=== PATIENT | female | born 2000 | race Caucasian/White ===

== ENCOUNTER 2023-03-21 12:28 | Outpatient (CLI) | payer OTHER, SELFPAY ==
[2023-03-21 09:07] LABS: HCT 41.6 % (36.0-46.0); MCHC 33.7 % (32.0-36.0); MCV 83 fL (80-95); MPV 9.2 fL (8.0-11.0); Platelet Count 242 10^3/uL (130-400); RDW 12.5 % (11.7-14.6); WBC 8.78 10^3/uL (4.4-10.8)
== END 2023-03-21 12:29 | disposition home or self-care (01) ==
LOC: LBO 12:30
PROVIDERS: PCP Nurse Practitioner Family; Visit Provider Obstetrics & Gynecology Gynecology
DX: O02.1 Missed abortion (principal); Z3A.01 Less than 8 weeks gestation of pregnancy; Z01.818 Encounter for other preprocedural examination; Z01.812 Encounter for preprocedural laboratory examination
CPT/HCPCS: 36415; 85027; 86850; 86900; 86901

== ENCOUNTER 2023-03-22 09:31 | Day surgery (SDC) | payer OTHER, SELFPAY ==
[2023-03-22] VITALS (8 sets, daily range): BP systolic 89–116; BP diastolic 42–75; PULSE 68–83; RESP 17–20; TEMP 36.1–36.6; O2SAT 96–100; BMI 31.7
[2023-03-22] MEDS: Lactated Ringers 1,000 ML 125 ML IV (10:20)
--- NOTE | 2023-03-22 10:28 | W.ANESPRE ---
General Info Date of Service Date Performed: 03/22/23 Height: 5 ft 5 in Weight: 86.6 kg Body Mass Index (BMI): 31.7 Surgical Procedure: Operation Date: 03/22/23 11:40 Proposed Procedure Side Surgeon p Suction Completion, D&C Nubia Billingsley MD Meds Allergies and Home Medications Allergies Allergy/AdvReac Type Severity Reaction Status Date / Time No Known Allergies Allergy Verified 03/22/23 09:52 Home Medication Medication Instructions Recorded PNV 153-FA 400 mcg-om3 35 mg-dha 1 tab PO DAILY 02/21/23 25 mg-epa 5 mg-fish oil chew tablet ( Gummies) Current Visit Medications: Current Medications Generic Name Dose Route Start Last Admin Trade Name Freq PRN Reason Stop Dose Admin Ringer's Solution 1,000 mls @ 125 mls/hr 03/22/23 06:00 03/22/23 10:20 IV 04/20/23 23:59 125 mls/hr INFUSION AUGUSTIN Administration Doxycycline Hyclate 100 mg/ 100 mls @ 100 mls/hr 03/22/23 06:00 Sodium Chloride IVPB 03/22/23 23:59 PREOP AUGUSTIN IV Miscellaneous Supplies 1 each 03/22/23 06:00 Iv Access IV 04/20/23 23:59 DIRECTED AUGUSTIN Sodium Chloride 0 ml 03/22/23 06:00 Normal Saline Flush 10 Ml Syr IV 04/20/23 23:59 PRN PRN Sodium Chloride 0 ml 03/22/23 06:00 Normal Saline 10 Ml Vial IJ 04/20/23 23:59 DIRECTED PRN Sterile Water 0 ml 03/22/23 06:00 Water,Injection,Sterile 10 Ml Vial IJ 04/20/23 23:59 DIRECTED PRN PFSH Active Problems Active Problems: Problem Status Onset Code Preoperative exam for gynecologic surgery Z01.818 Miscarriage O03.9 Z34.90 Smoker F17.200 Medical History Medical History (Updated 03/21/23 @ 19:35 by Nubia Billingsley MD) No pertinent past medical history Surgical History Surgical History No pertinent past surgical history Tobacco Smoking/Tobacco Use Status: Current every day Tobacco Type: e-cigarettes Counseling given: provider counseling Alcohol Alcohol Intake: current Alcohol intake frequency: holidays/special occasions only Substance Use Substance use: Never Substance use type: does not use Prental History History 1 Para Hx # Term Pregnancies Multiple births Hx # Pregnancies Ectopic pregnancies AB induced Hx Number of Living Children AB spontaneous 1 Past Pregnancies Del. Date GA/Weeks # Preg Succ Route Wgt Sex Labor Lgth Anesthesia Location [facility] 03/20/23 No No Nubia O' Mitchell Delivery Date: 03/20/23 Last Updated by: Gwen Calvillo LPN miscarriage Vital Signs and Lab Results Vital Signs Most Recent Vital Signs in EMR: Most Recent Vital Signs Temp Pulse Resp BP Pulse Ox 36.6 C 72 18 116/69 100 03/22/23 09:40 03/22/23 09:40 03/22/23 09:40 03/22/23 09:40 03/22/23 09:40 Lab Results Blood Type / Crossmatch: Patient ABO/Rh O Positive 03/21/23 Antibody Screen NEGATIVE 03/21/23 Complete Blood Count: White Blood Count 8.78 10^3/uL (4.4-10.8) 03/21/23 08:50 Red Blood Count 5.00 10^6/uL (3.93-5.22) 03/21/23 08:50 Hemoglobin 14.0 g/dL (11.2-15.7) 03/21/23 08:50 Hematocrit 41.6 % (36.0-46.0) 03/21/23 08:50 Platelet Count 242 10^3/uL (130-400) 03/21/23 08:50 Complete Metabolic Panel: No Data to Display Liver Function Panel: No Data to Display Coagulation Panel: No Data to Display Cardiac Panel: No Data to Display Arterial Blood Gas: No Data to Display Venous Blood Gas: No Data to Display Pancreas Panel: No Data to Display Thyroid Panel: No Data to Display Infectious Disease: No Data to Display Blood Cultures: No Data to Display Toxicology Panel: No Data to Display Panel: Urine HCG, Qualitative Positive 02/21/23 14:07 Anesthesia Assessment and Plan Anesthesia History Personal History: No History of General Anesthesia Family History: No Family History of Anesthesia Complications Exercise Tolerance Exercise Tolerance: Metabolic Equivalents>4 Pertinent Negatives Pertinent Negatives: No Symptoms of GERD, No Major Cardiovascular Symptoms or Complaints, No Major Pulmonary Symptoms or Complaints and No History of CVA/TIA Cardiac & Pulmonary Exam Cardiac Exam: Normal S1/S2 Heart Sounds Pulmonary Exam: Clear Bilateral Breath Sounds Implantable Cardiac Device Does patient have a Pacemaker or an ICD?: No Airway Exam Known Difficult Airway: No Mallampati Class: 1 Mouth Opening: Normal (> 3cm) Thyromental Distance: Greater than 3 cm Neck Range of Motion: Full ROM Neck Circumference: Normal Teeth Condition: Normal Dentition Airway Comments: Nose piercing. No piercings in mouth ASA Classification ASA Score: ASA 2 Emergency Case?: No NPO Status NPO Status: NPO Clears >2 hours, Solids >8 hours Status Status: Positive HCG Anesthesia Plan Resuscitation Status: Full Code Anesthesia Technique: General Anesthesia Airway Planned: Natural Airway (and or OETT) Monitors Used: Standard Monitors
[2023-03-22] MEDS: DOXYCYCLINE 100 MG in Normal Saline 100 ML IVPB (10:31)
[2023-03-22] MEDS: Bupivacaine 0.25% Pres-Free 30 ML VIAL (12:04)
--- NOTE | 2023-03-22 12:14 | POCSPONT_PTH ---
PATIENT: Keegan Hope LOC: [facility] U#:[id number] AGE/SX: 23/F ROOM: RE03/22/[address]: Nubia Billingsley : 2000 BED: DIS: 03/22/2023 SPEC #: [id number] RECD: 03/22/23 14:50 STATUS: MEILIA REFermin #: [id number] MIMI: 03/22/23 12:[address]: Nubia Billingsley DEPT: Surgical Specimen RECD BY: Sandi Canseco ENTERED: 03/22/23 14:51 SP TYPE: POCSPONT OT DR: Liss Ruffin Tissues: 1 - ,SPONTANEOUS Procedures: GROSS AND MICRO LEVEL 4 Comments: [id number]
--- NOTE | 2023-03-22 12:31 | W.PM.DSUDISC ---
Date of service: 03/22/23 Time of Service: 12:42 Discharge Plan Disposition Patient Disposition: Home Condition: Good Discharge Details Reason For Visit: D&C for embryonic demise Attending Provider: Nubia Billingsley Primary Care Provider: Liss Ruffin Home Meds and New Rx's Prescriptions: No Action Gummies 400 mcg-35 mg- 25 mg-5 mg tablet,chewable 1 tab PO DAILY Discharge Instructions Additional Instructions: You can expect bleeding like a period for a week. Use pads for the 1st 48hrs then you may use tampons. No intercourse until you return for your postop exam approximately 2 weeks after the surgery Stand Alone Forms: DSU Post D&C Miscarriage Activity:: Activity as Tolerated Shower/Bathe:: 24 hours Diet:: As Tolerated Discharge Orders Discharge Orders: Discharge Order (Routine); Ordered 03/22/23 Ordered By: Nubia Billingsley
--- NOTE | 2023-03-22 12:49 | W.ANESPOSTOP ---
Postoperative Evaluation Date, Time and Location Date Performed: 03/22/23 Time Performed: 12:50 Patient Location: PACU Vital Signs Most Recent Imported Vital Signs: Most Recent Vital Signs Temp Pulse Resp BP Pulse Ox 36.2 C L 83 20 114/69 99 03/22/23 12:47 03/22/23 12:47 03/22/23 12:47 03/22/23 12:47 03/22/23 12:47 Pain Score Most Recent Pain Score: Most Recent Pain Score Pain Level 0 03/22/23 12:47 Assessment Mental Status: Awake (Alert & Oriented to Patient Baseline) Airway and Respiratory Function: Patent airway with normal (patient baseline) respiratory exam Cardiovascular Function: Hemodynamically Stable Hydration Status: Adequately Hydrated Nausea & Vomiting: No Nausea or Vomiting Pain: Pt. Denies Any Pain Peripheral Nerve Block: Patient did not receive a nerve block
--- NOTE | 2023-03-22 20:28 | ROE_ITS ---
Date of service: 03/22/23 Time of Service: 20:28 Operative Note Operative Note DATE OF PROCEDURE: 03/22/23 PRE-OP DIAGNOSIS: Embryonic demise at 6 weeks EGA PROCEDURE: Cervical dilation and suction evacuation of uterine contents SURGEON: Nubia Billingsley ANESTHESIA TYPE: General:No Airway Refer to Anesthesia Record ESTIMATED BLOOD LOSS: 20 PATHOLOGY: other (Products of conception to pathology) COMPLICATIONS: None Patient was transported to: PACU Patient's condition: stable Indications: 23 yo female who?who was diagnosed with embryonic demise on 03/20/20. [facility] with a EGA of 10 weeks by LMP.? The transvaginal ultrasound showed a pole without heart rate measuring 6W EGA.? Patient was advised to return for a repeat dating/viability. Ultrasound showed a enlarged yolk sac and a pole without a heartbeat that continued to have a crown-rump length of 6 weeks EGA. Patient consented to a D&C. Findings: Uterus was small retroverted. Uterine sounded to 10 cm. Procedure Description: Patient was taken to the operating room where she was placed in the dorsal supine position and general anesthesia was administered without difficulty. IV Doxycycline was administered upon arrival in the OR. She was then placed in the dorsal lithotomy position in yellowfin stirrups in a neurologically neutral position. She was then prepped, and draped in the usual sterile fashion. Surgi khadra timeout was performed. Darien speculum was placed into the vagina and the anterior lip of the cervix was infiltrated with 2 cc of 0.25% Marcaine without epinephrine. A single-tooth tenaculum was then used to grasp and hold the anterior lip of the cervix. A paracervical block was performed with 4 cc of quarter percent Marcaine injected into the 4 and 8:00 paracervical spaces respectively. The uterus was sounded to 10 cm. The cervix was then sequentially dilated to a maximum of 8 Babs and a 87 mm curved suction cannula was attached to suction and the level of suction tested. The cannula was inserted into the uterine cavity attached to suction and sequentially all 4 quadrants of the uterine cavity were suction curetted until minimal tissue returned. The suction cannula was then removed a banjo curette was used to perform a gentle curetting of all 4 quadrants of the uterine cavity. Minimal tissue was returned. A transvaginal ultrasound was performed to examine the uterus for any remaining products of conception. There were none noted. A final insertion of the suction cannula and suction curetting of all 4 quadrants was performed with minimal tissue returned. All instruments were removed from the vagina after the tenaculum site was noted to be hemostatic. Patient was awakened and transported to recovery area in stable condition. All sponge lap needle counts correct x2
== END 2023-03-22 09:32 | disposition home or self-care (01) ==
PROVIDERS: PCP Nurse Practitioner Family; Visit Provider Obstetrics & Gynecology Gynecology
PROC: (CPT 59841; principal; 2023-03-22 11:30)
DX: O02.1 Missed abortion (principal); Z3A.01 Less than 8 weeks gestation of pregnancy
CPT/HCPCS: 59820; 88305; 88304; J1100; J1885; J2001; J2250; J2405; J2704

== ENCOUNTER 2023-05-12 10:33 | Outpatient (CLI) | payer OTHER, SELFPAY | END 2023-05-12 10:34 | disposition home or self-care (01) | LOC: LBO 10:33 | PROVIDERS: PCP Nurse Practitioner Family; Visit Provider Obstetrics & Gynecology Gynecology | DX: Z32.01 Encounter for pregnancy test, result positive (principal) | CPT/HCPCS: 36415; 84702 ==

== ENCOUNTER 2023-06-16 04:49 | Outpatient (CLI) | payer OTHER, SELFPAY ==
[2023-06-16 11:10] LABS: Panorama Kit Sent via Fed Ex
[2023-06-16 11:14] LABS: Abs Immature Grans 0.05 10^3/uL (0.0-0.06); Absolute Basophil Count 0.03 10^3/uL (0.0-0.2); Absolute Eosinophil Count 0.33 10^3/uL (0.0-0.7); Absolute Lymphocyte Count 1.71 10^3/uL (1.2-3.4); Absolute Monocyte Count 0.54 10^3/uL (0.1-0.8); Absolute Neutrophil Count 7.79 10^3/uL (1.2-6.7); Basophils % 0.3; Eosinophils % 3.2; HCT 34.6 % (36.0-46.0); Immature Grans % 0.5; Lymphocytes % 16.4; MCH 28.3 pg (27.0-33.0); MCHC 34.7 % (32.0-36.0); MCV 82 fL (80-95); MPV 9.3 fL (8.0-11.0); Monocytes % 5.2; Neutrophils % 74.4; Platelet Count 227 10^3/uL (130-400); RBC 4.24 10^6/uL (3.93-5.22); RDW 12.2 % (11.7-14.6); RDW-SD 36.4 fL; WBC 10.45 10^3/uL (4.4-10.8)
[2023-06-16 11:24] LABS: Glucose,1 Hr (Glucola) 123 mg/dL (80-140)
[2023-06-17 11:04] LABS: HIV-1/2 Ag & Ab Screen Negative (Negative)
[2023-06-19 08:43] LABS: Hepatitis C Ab w Rflx HCV PCR Negative (Negative)
[2023-06-19 09:01] LABS: Hepatitis B Surface Ag Negative (Negative)
[2023-06-19 11:16] LABS: Rubella IgG Ab (UVM) Positive (See Note)
[2023-06-19 13:01] LABS: Varicella IgG Antibody Equivocal (See Note)
[2023-06-19 23:33] LABS: Syphilis IgG w/Reflex Nonreactive (Nonreactive)
== END 2023-06-16 04:50 | disposition home or self-care (01) ==
LOC: LBO 04:49
PROVIDERS: PCP Nurse Practitioner Family; Visit Provider Advanced Practice Midwife
DX: Z34.91 Encounter for supervision of normal pregnancy, unspecified, first trimester
CPT/HCPCS: 36415; 82950; 86787; 86803; 86850; 86900; 86901; 87340; 87389; 85025; 86762; 86780

== ENCOUNTER 2023-06-16 11:17 | Outpatient (REF) | payer OTHER, SELFPAY ==
--- NOTE | 2023-06-16 10:00 | PAPFT_PTH ---
PATIENT: Keegan Hope LOC: [facility] U#:[id number] AGE/SX: 23/ ROOM: RE06/16/[address]: Christen Lopez : 2000 BED: DIS: 06/16/2023 SPEC #: [id number] RECD: 06/16/23 12:58 STATUS: EMILIA REQ #: [id number] MIMI: 06/16/23 10:[address]: Christen Lopez DEPT: [facility] Cytology RECD BY: Siria Figueroa ENTERED: 06/16/23 12:58 SP TYPE: PAPFT OTHR DR: Liss Ruffin Tissues: 1 - CX/ENDOCX FOR PAP SMEARS Procedures: PAP THIN PREP/UVM Screening Comments: [id number]
[2023-06-16 13:20] LABS: *AMPHETAMINES SCREEN URINE Negative (Negative); *BARBITURATES SCREEN URINE Negative (Negative); *BENZODIAZEPINES SCREEN URINE Negative (Negative); Cannabinoids THC Negative (Negative); Cocaine Screen,Urine Negative (Negative); METHADONE URINE SCREEN Negative (Negative); OPIATES URINE SCREEN Negative (Negative); Tricyclic Antidepressants Negative (Negative)
[2023-06-17 21:46] LABS: Chlamydia Result Negative (Negative); GC Result Negative (Negative)
[2023-06-21 14:43] LABS: Buprenorphine Negative ng/mL (Cutoff: 5.0); Norbuprenorphine Negative ng/mL (Cutoff: 2.5)
== END 2023-06-16 11:18 | disposition home or self-care (01) ==
LOC: LBN 11:17
PROVIDERS: PCP Nurse Practitioner Family; Visit Provider Advanced Practice Midwife
DX: Z34.91 Encounter for supervision of normal pregnancy, unspecified, first trimester (principal); Z11.3 Encounter for screening for infections with a predominantly sexual mode of transmission; Z12.4 Encounter for screening for malignant neoplasm of cervix; Z3A.11 11 weeks gestation of pregnancy
CPT/HCPCS: 80307; 80348; 87491; 87591; 88142; 87086

== ENCOUNTER 2023-07-14 04:06 | Outpatient (CLI) | payer OTHER, SELFPAY ==
[2023-07-17 17:44] LABS: AFP 106.1 ng/mL; GA used in risk estimate Scan estimate; IVF Pregnancy No; Initial or repeat testing Initial testing; Insulin dependent diabetes No; Maternal Weight 185 lbs; Number of Fetuses 1; Physician Phone Number 802-748-7300; Prev Pregnancy w/NTD No
== END 2023-07-14 04:07 | disposition home or self-care (01) ==
PROVIDERS: Advanced Practice Midwife; PCP Nurse Practitioner Family; Visit Provider Advanced Practice Midwife
DX: Z34.92 Encounter for supervision of normal pregnancy, unspecified, second trimester (principal); Z36.89 Encounter for other specified antenatal screening; Z3A.15 15 weeks gestation of pregnancy
CPT/HCPCS: 36415; 82105

== ENCOUNTER 2023-10-06 02:44 | Outpatient (CLI) | payer OTHER, SELFPAY ==
[2023-10-06 11:07] LABS: HCT 36.3 % (36.0-46.0); HGB 12.4 g/dL (11.2-15.7); MCH 28.5 pg (27.0-33.0); MCHC 34.2 % (32.0-36.0); MCV 83 fL (80-95); MPV 9.6 fL (8.0-11.0); Platelet Count 252 10^3/uL (130-400); RBC 4.35 10^6/uL (3.93-5.22); RDW 13.6 % (11.7-14.6); RDW-SD 41.3 fL; WBC 11.89 10^3/uL (4.4-10.8)
[2023-10-06 11:13] LABS: Glucose,1 Hr (Glucola) 128 mg/dL (80-140)
== END 2023-10-06 02:45 | disposition home or self-care (01) ==
LOC: LBO 02:44
PROVIDERS: PCP Nurse Practitioner Family; Visit Provider Advanced Practice Midwife
DX: Z34.92 Encounter for supervision of normal pregnancy, unspecified, second trimester (principal)
CPT/HCPCS: 36415; 82950; 85027

== ENCOUNTER → 2023-11-10 00:06 | Outpatient (CLI) | payer OTHER, SELFPAY ==
--- NOTE | 2023-11-10 07:15 | DI.US_ITS ---
Exam(s) US OB ASHU WEIGHT EXAM: US OB ASHU WEIGHT CLINICAL HISTORY: interval growth, position,Q51.3,O31.10XO. TECHNIQUE: Transabdominal obstetrical ultrasound performed. COMPARISON: US US OB 1ST TRIMESTER from 06/16/2023 FINDINGS: Number of fetuses: 1 position: Odin breech Placental location: There is a grade 2 posterior placenta. No evidence of previa. BIOMETRIC DATA: BPD: 8.2cm, 33weeks HC: 29.86cm, 33weeks 1day AC: 28.27cm, 32weeks 2days FL: 6.08cm, 31weeks 4days EFW: 1,928.48g, 4lb 5oz, 41.5% Composite Age: 32weeks 4days BRITTANY: 01/01/2024 Heart Rate: 155bpm Amniotic fluid index: 14.91cm. Visually, amount of fluid is within normal limits. IMPRESSION: 1. Single live intrauterine gestation as above. 2. Estimated weight is 1928gms. This is the 42nd percentile. 3. Amniotic fluid index is 14.9 cm. Visually within normal limits. DATA REPOSITORY:
== END ==
PROVIDERS: PCP Nurse Practitioner Family; Visit Provider Advanced Practice Midwife
DX: Q51.3 Bicornate uterus (principal); O31.10X0 Continuing pregnancy after spontaneous abortion of one fetus or more, unspecified trimester, not applicable or unspecified; Z3A.31 31 weeks gestation of pregnancy
CPT/HCPCS: 76816

== ENCOUNTER 2023-12-08 15:21 | Outpatient (REF) | payer OTHER, SELFPAY | END 2023-12-08 15:22 | disposition home or self-care (01) | LOC: LBN 15:21 | PROVIDERS: PCP Nurse Practitioner Family; Visit Provider Advanced Practice Midwife | DX: Z34.93 Encounter for supervision of normal pregnancy, unspecified, third trimester (principal); Z36.85 Encounter for antenatal screening for Streptococcus B; Z3A.36 36 weeks gestation of pregnancy | CPT/HCPCS: 87081 ==

== ENCOUNTER 2023-12-24 22:41 | Outpatient (CLI) | payer OTHER, SELFPAY ==
[2023-12-24 21:53] VITALS: BP 127/78; PULSE 83; RESP 16; TEMP 36.8
[2023-12-24 22:13] VITALS: BP 127/78; PULSE 82; TEMP 36.8
[2023-12-24 22:24] LABS: ROM Plus Negative
--- NOTE | 2023-12-24 23:02 | W.OBNST ---
Date of service: 12/24/23 Time of Service: 23:02 NST Evaluation Reason for NST Reasons for Nonstress Test: OTHER, SEE COMMENT Reason for NST Other: Possible SROM Gestational Age Gestational Age in Weeks and Days: 38 Weeks and 3Days Test and Monitor Explained Test/Monitor Explained: Test Explained, Monitor Explained and Patient Verbalized Understanding Vital Signs Blood Pressure: 127/78 Pulse: 82 Temperature: 98.3 F Urine Results Urine Protein: Positive Urine Ketones: Negative Urine Glucose: Negative Urine Blood: Negative NST Information Date on Monitor: 12/24/23 Time on Monitor: 21:49 Date off Monitor: 12/24/23 Time off Monitor: 22:13 Total Time on Monitor: 24 NST Interventions: None NST Evaluation Patient States Movement: Present FHR Baseline: 120 Variability: Moderate 6-25 bpm Accelerations: 15x15 Decelerations: None NST Results: Reactive Note Ultrasound Done: Presentation (Dilshad breech. Head maternal R. spine. maternal L>) Coding for Presentation w/NST: Completed Exam. NST Note Note: Patient called to report clear fluid from the vagina earlier this evening. She was unsure if she had ruptured her membranes. On evaluation on the center NST was reactive no pooling in the vagina ROM plus negative ferning negative pH 4. SVE closed on dilshad breech confirmed by bedside ultrasound. Patient given reassurance and will follow-up in the office for a preop history and physical this week. NST Reviewed and Verified by: Nubia Billingsley
[2023-12-24 23:05] VITALS: BP 127/78; PULSE 82; TEMP 36.8
== END 2023-12-24 23:06 | disposition home or self-care (01) ==
LOC: BCD 22:42
PROVIDERS: Visit Provider Obstetrics & Gynecology Gynecology
DX: O47.1 False labor at or after 37 completed weeks of gestation (principal); O32.1XX0 Maternal care for breech presentation, not applicable or unspecified; Z3A.38 38 weeks gestation of pregnancy
CPT/HCPCS: 59025; 84112

== ENCOUNTER 2023-12-27 05:05 | Outpatient (CLI) | payer OTHER, SELFPAY ==
[2023-12-27 13:44] LABS: Abs Immature Grans 0.06 10^3/uL (0.0-0.06); Absolute Basophil Count 0.04 10^3/uL (0.0-0.2); Absolute Eosinophil Count 0.27 10^3/uL (0.0-0.7); Absolute Lymphocyte Count 2.03 10^3/uL (1.2-3.4); Absolute Monocyte Count 0.56 10^3/uL (0.1-0.8); Absolute Neutrophil Count 8.01 10^3/uL (1.2-6.7); Basophils % 0.4; Eosinophils % 2.5; HCT 37.4 % (36.0-46.0); HGB 12.7 g/dL (11.2-15.7); Immature Grans % 0.5; Lymphocytes % 18.5; MCH 27.7 pg (27.0-33.0); MCV 82 fL (80-95); MPV 10.2 fL (8.0-11.0); Monocytes % 5.1; Platelet Count 209 10^3/uL (130-400); RBC 4.58 10^6/uL (3.93-5.22); RDW 14.1 % (11.7-14.6); RDW-SD 41.2 fL; WBC 10.97 10^3/uL (4.4-10.8)
== END 2023-12-27 05:06 | disposition home or self-care (01) ==
LOC: LBO 05:05
PROVIDERS: Visit Provider Obstetrics & Gynecology
DX: Z01.818 Encounter for other preprocedural examination (principal)
CPT/HCPCS: 36415; 86850; 86900; 86901; 85025

== ENCOUNTER 2023-12-28 05:38 | Inpatient (IN) | payer OTHER, SELFPAY ==
--- NOTE | 2023-12-27 14:02 | HPE_ITS ---
Date of service: 12/28/23 Time of Service: 07:00 Assessment and Plan Assessment and plan (1) Breech presentation: Status: Acute Assessment and plan: PCS 12/27/23. Consent signed and procedure reviewed. OB-HPI Labor/Delivery History of Present Illness Chief Complaint: Scheduled Section , Inidcation for Scheduled C- Section: Position , Position: Breech.. BRITTANY Calculator Estimated Delivery Date Method Current WG Current Estimate 01/04/24 Ultrasound #1 38w 6d Other Estimates 12/27/23 LMP (Uncertain) 40w 0d History of Present Expected Delivery Route/Plan - CNM FOB/fitesha - [place] (first child) BB Cecelia, yes to circ Varicella non immune, pt accepts vaccine 36 wks: dilshad breech, declines ECV, will transfer to MD care for scheduled c/s GBS neg Specific Issues/Plan 1. 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 2. Vaping - trying to quit, nicotine patch escribed. 3. BMI 30.8 - early GTT- 123, 28 weeks - 128 - Increased preeclampsia risk - ASA daily recommended. Has a hard time remembering to take it. 4. History of anxiety and depression - no symptoms now. 5. Panorama drawn: low risk x5 male, considering CF test if she receives medicaid 6a. AFP single marker: elevated risk from NTD, [place] [facility] [place] 6. MFM consult: 6a. Sister's daughter MS-like symptoms and AV canal defect, unlikely to increase her risk US pending 6b. Brother's son arthrogryposis of upper and lower limbs, possibly from oligo declined further testing 6c. MGF Retinitis Pigmentosa, only family member affected declined additional testing 6d. FOB and several family members seizures, incl his sister & her 2 sons, MGF, multiple maternal cousins affected, peds to be notified (I forwarded M report to Peds to inform them as well.) 6e. Normal Level 2 US, no mullerian findings to uterus, 32 wk growth: 42nd%, ASHU 15, breech 7. Breech presentation: declines ECV due to bicornuate uterus. - Scheduled PCS Review of Systems Narrative: Feeling well Genitourinary Genitourinary: Reports system reviewed and no additional complaints, except as documented PFSH All Active Problems Breech presentation (Acute) Maternal varicella, non-immune (Acute) Vanishing twin syndrome (Acute) BMI 30.0-30.9,adult (Acute) Bicornuate uterus (Acute) Family history of congenital heart defect (Acute) (Acute) Medical History Lateral meniscus tear First trimester bleeding Threatened Miscarriage Smoker Vape, trying to quit. No pertinent past medical history Surgical History History of D&C 03/22/2023. Embryonic demise at 6 weeks EGA No pertinent past surgical history Family History Maternal Grandfather Retinitis pigmentosa Father Alcohol use disorder Social History Smoking/Tobacco Use Status: Former Tobacco Use Quit Date: 07/05/23 Counseling given: provider counseling Smoking risk assessment performed?: Yes Alcohol Intake: former Drug use: Never Substance use type: does not use Household members: significant other Housing: apartment Sexually active: Yes Do you think of yourself as: straight/heterosexual Current gender identity: female Additional Social history: Unable to assess [facility] Female Reproductive History Menstrual control method: none History History 2 Para 0 Hx # Term Pregnancies 0 Multiple births 0 Hx # Pregnancies 0 Ectopic pregnancies 0 AB induced 0 Hx Number of Living Children 0 AB spontaneous 1 Past Pregnancies Del. Date GA/Weeks # Preg Succ Route Wgt Sex Labor Lgth Anesth esia Location Prov Complic 03/20/23 No No Nubia O' Con nor Delivery Date: 03/20/23 Last Updated by: Katerine Lucero D&C Meds Allergies and Home Medications Allergies Allergy/AdvReac Type Severity Reaction Status Date / Time pineapple Allergy Intermediate Other (See Verified 12/27/23 13:11 Comment) Home Medications Medication Instructions Recorded Confirmed Type vits,calcium 21-iron fum 1 tab PO DAILY 06/16/23 12/27/23 History 14 mg iron-folic acid 400 mcg tablet ( Complete) aspirin 81 mg chewable tablet 81 mg PO DAILY 07/14/23 12/27/23 History Exam Detailed Labor and Delivery Exam Aquino Score: Cervical Points Exam 0 1 2 3 Dilation Closed 1-2cm 3-4 cm 5-6cm Effacement 0-30% 40-50% 60-70% 80% Consistency Firm Medium Soft Station -3 -2 -1,0 +1,+2 Position Posterior Mid Anterior Detailed HEENT Exam Head: Present normocephalic and atraumatic Detailed Respiratory Exam Respiratory: Present CTA bilaterally Cardiovascular Exam Cardiovascular Exam: Normal Detail Cardiovascular Exam Cardiovascular: Present RRR Detailed Abdominal Exam Comments: gravid, nontender Detailed Neurological Exam Neurological: Present alert, oriented X3 and CN II-XII intact DetailedPsychiatric Exam Psychiatric: Present normal affect, normal thought process and cooperative Results Results Group Beta Strep: Negative Blood Type: O+ Rubella Status: Immune Varicella Immunity: Equivocal Risk Assessment Risk for Shoulder Dystocia Historical/Initial OB: POSITIVE FOR: Pre- BMI>30; NEGATIVE FOR: Pelvic Abnormality, Previous Shoulder Dystocia or Previous Macrosomia Increased Risk?: No Delivery Plan @ 36wks: breech, plan c/s Risk for Pre-Eclampsia Daily Dose ASA Indicated: Yes (nulliparity, BMI >30) Date Initiated/Initials: 06/16/23 Yes, if one or more: NEGATIVE FOR: Hx Pre-E/Gest HTN, Chronic HTN, Multiple Gestation, Pre-gestational DM, Renal Disease, Systemic Lupus or APA Syndrome Yes, if 2 or more: POSITIVE FOR: Nulliparity and BMI>30; NEGATIVE FOR: Age>= 35 yrs, >10yr btwn pregnancies, ethinicty, Mother/Sister w/ Pre-E or Previous IUGR Risk for Post- Hemorrhage Initial: NEGATIVE FOR: Multiple Gestation, Previous PPH, Known Clotting Deficiency, Grand Multiparity or Anticoagulation At Risk?: No Risks Reviewed Risks Reviewed Upon Admission: Yes
[2023-12-28] VITALS (131 sets, daily range): BP systolic 107–132; BP diastolic 58–93; PULSE 53–173; RESP 16–18; TEMP 36.2–36.5; O2SAT 94–100; BMI 34.1
[2023-12-28] MEDS: Lactated Ringers 1,000 ML 125 ML IV (06:46)
[2023-12-28] MEDS: AZITHROMYCIN 500 MG in Normal Saline 250 ML 250 MG IVPB (06:48)
[2023-12-28] MEDS: Sodium Citrate 30 ML CUP PO (06:49)
--- NOTE | 2023-12-28 07:24 | ANES.PREOP_ITS ---
General Info Date of Service Date Performed: 12/28/23 Height: 5 ft 5 in Weight: 92.986 kg Body Mass Index (BMI): 34.1 Surgical Procedure: Operation Date: 12/28/23 07:40 Proposed Procedure Side Surgeon p Section Denia Tatum MD Actual Procedure Side Surgeon p Section Not Applicable Denia Tatum MD Pre-Op Diagnosis Post-Op Diagnosis Breech presentation Meds Allergies and Home Medications Allergies Allergy/AdvReac Type Severity Reaction Status Date / Time pineapple Allergy Intermediate Other (See Verified 12/27/23 13:11 Comment) Home Medication Medication Instructions Recorded vits,calcium 21-iron fum 1 tab PO DAILY 06/16/23 14 mg iron-folic acid 400 mcg tablet ( Complete) aspirin 81 mg chewable tablet 81 mg PO DAILY 07/14/23 Current Visit Medications: Current Medications Generic Name Dose Route Start Last Admin Trade Name Freq PRN Reason Stop Dose Admin Citric Acid/Sodium Citrate 30 ml 12/27/23 15:00 12/28/23 06:49 Sodium Citrate 30 Ml Cup PO 30 ml PREOP AUGUSTIN Administration Ringer's Solution 1,000 mls @ 125 mls/hr 12/28/23 06:00 12/28/23 06:46 IV 01/25/24 23:59 125 mls/hr INFUSION AUGUSTIN Administration Cefazolin Sodium/Dextrose 2 gm in 50 mls @ 100 mls/hr 12/28/23 06:00 Ancef Duplex IVPB 01/25/24 23:59 PREOP AUGUSTIN Azithromycin 500 mg/ Sodium 250 mls @ 250 mls/hr 12/28/23 06:00 12/28/23 06:48 Chloride IVPB 12/28/23 23:59 250 mls/hr PREOP AUGUSTIN Administration Ringer's Solution 1,000 mls @ 200 mls/hr 12/27/23 14:15 IV INFUSION AUGUSTIN IV Miscellaneous Supplies 1 each 12/28/23 06:00 Iv Access IV 01/25/24 23:59 DIRECTED AUGUSTIN IV Miscellaneous Supplies 1 each 12/27/23 14:15 Iv Access IV DIRECTED AUGUSTIN Sodium Chloride 0 ml 12/28/23 06:00 Normal Saline Flush 10 Ml Syr IV 01/25/24 23:59 PRN PRN Sodium Chloride 0 ml 12/28/23 06:00 Normal Saline 10 Ml Vial IJ 01/25/24 23:59 DIRECTED PRN Sodium Chloride 0 ml 12/27/23 14:08 Normal Saline Flush 10 Ml Syr IVP PRN PRN Sodium Chloride 0 ml 12/27/23 20:00 Normal Saline Flush 10 Ml Syr IVP BID AUGUSTIN Sodium Chloride 0 ml 12/27/23 14:08 Normal Saline 10 Ml Vial IJ DIRECTED PRN Sterile Water 0 ml 12/28/23 06:00 Water,Injection,Sterile 10 Ml Vial IJ 01/25/24 23:59 DIRECTED PRN PFSH Active Problems Active Problems: Problem Status Onset Code Breech presentation O32.1XX0 Maternal varicella, non-immune O09.899, Z28.39 Vanishing twin syndrome O31.10X0 BMI 30.0-30.9,adult Z68.30 Bicornuate uterus Q51.3 Family history of congenital heart defect Z82.79 Z34.90 Medical History Medical History Smoker Vape, trying to quit. First trimester bleeding Miscarriage Threatened Lateral meniscus tear No pertinent past medical history Surgical History Surgical History History of D&C 03/22/2023. Embryonic demise at 6 weeks EGA No pertinent past surgical history Tobacco Smoking/Tobacco Use Status: Former Tobacco Use Counseling given: provider counseling Alcohol Alcohol Intake: former Substance Use Substance use: Never Substance use type: does not use Prental History History 2 Para 0 Hx # Term Pregnancies 0 Multiple births 0 Hx # Pregnancies 0 Ectopic pregnancies 0 AB induced 0 Hx Number of Living Children 0 AB spontaneous 1 Past Pregnancies Del. Date GA/Weeks # Preg Succ Route Wgt Sex Labor Lgth Anesth esia Location Prov [facility] 03/20/23 No No Nubia O' Con nor Delivery Date: 03/20/23 Last Updated by: Katerine Lucero D&C Vital Signs and Lab Results Vital Signs Most Recent Vital Signs in EMR: Most Recent Vital Signs Pulse BP 85 120/67 12/28/23 05:44 12/28/23 05:44 Lab Results Blood Type / Crossmatch: Patient ABO/Rh O Positive 12/27/23 Antibody Screen NEGATIVE 12/27/23 Complete Blood Count: White Blood Count 10.97 10^3/uL (4.4-10.8) H 12/27/23 13:30 Red Blood Count 4.58 10^6/uL (3.93-5.22) 12/27/23 13:30 Hemoglobin 12.7 g/dL (11.2-15.7) 12/27/23 13:30 Hematocrit 37.4 % (36.0-46.0) 12/27/23 13:30 Platelet Count 209 10^3/uL (130-400) 12/27/23 13:30 Complete Metabolic Panel: No Data to Display Liver Function Panel: No Data to Display Coagulation Panel: No Data to Display Cardiac Panel: No Data to Display Arterial Blood Gas: No Data to Display Venous Blood Gas: No Data to Display Pancreas Panel: No Data to Display Thyroid Panel: No Data to Display Infectious Disease: No Data to Display Blood Cultures: No Data to Display Toxicology Panel: No Data to Display Panel: No Data to Display Anesthesia Assessment and Plan Anesthesia History Personal History: No History of Anesthesia Complications Family History: No Family History of Anesthesia Complications Exercise Tolerance Exercise Tolerance: Metabolic Equivalents>4 Pertinent Negatives Pertinent Negatives: No Major Cardiovascular Symptoms or Complaints, No Major Pulmonary Symptoms or Complaints and No History of CVA/TIA Cardiac & Pulmonary Exam Cardiac Exam: Normal S1/S2 Heart Sounds Pulmonary Exam: Clear Bilateral Breath Sounds Cardiac and Pulmonary Comment:: pt reports s/s of reflux during but no s/s this am Implantable Cardiac Device Does patient have a Pacemaker or an ICD?: No Airway Exam Known Difficult Airway: No Mallampati Class: 3 Mouth Opening: Normal (> 3cm) Thyromental Distance: Greater than 3 cm Neck Range of Motion: Full ROM Neck Circumference: Normal Teeth Condition: Normal Dentition Airway Comments: Nose piercing. No piercings in mouth ASA Classification ASA Score: ASA 2 Emergency Case?: No NPO Status NPO Status: NPO Clears >2 hours, Solids >8 hours Status Status: Confirmed Anesthesia Plan Resuscitation Status: Full Code Anesthesia Technique: Spinal Anesthesia Airway Planned: Natural Airway Monitors Used: Standard Monitors
[2023-12-28] MEDS: ceFAZolin 2 GM/50 ML BAG IVPB (07:45)
[2023-12-28] MEDS: Bupivacaine 0.25% Pres-Free 30 ML VIAL (08:05)
--- NOTE | 2023-12-28 08:05 | PLAC_PTH ---
PATIENT: Keegan Hope LOC: OBS U#:[id number] AGE/SX: 23/F ROOM: OBS.305 RE12/28/[address]: Denia Tatum MD : 2000 BED: A DIS: 12/30/2023 SPEC #: [id number] RECD: 12/28/23 13:44 STATUS: SOUSophie REQ #: [id number] MIMI: 12/28/23 08:[address]: Denia Tatum DEPT: Surgical Specimen RECD BY: Siria Figueroa ENTERED: 12/28/23 13:44 SP TYPE: PLAC OTHR DR: Unknown,Unknown Tissues: 1 - PLACENTA (3RD TRIMESTER) Procedures: GROSS AND MICRO LEVEL 5 Comments: [id number]
--- NOTE | 2023-12-28 08:52 | ROE_ITS ---
Date of service: 12/28/23 Time of Service: 08:53 Operative Note Operative Note PRE-OP DIAGNOSIS: IUP@39wks, Breech presentation, bicornuate uterus POST-OP DIAGNOSIS: same PROCEDURE: PLTCS SURGEON: Denia Tatum ASSISTING SURGEON: Grecia Grace Refer to Anesthesia Record ESTIMATED BLOOD LOSS: 600 COMPLICATIONS: None Patient was transported to: floor Patient's condition: stable Indications: IUP @39wks, breech presentation with bicornuate uterus and a vanishing twin in the 1st trimester. Declined ECV. Findings: Breech presentation, bicornuate uterus, Male Procedure Description: After informed consent was signed the patient was taken to the operating room. She was given spinal anesthesia, SCDs were placed on her legs and a pichardo catheter was introduced into her bladder. The heart rate was checked and was normal. She underwent abdominal and vaginal prep and was draped in the dorsal supine position with a leftward tilt. The patient was tested and spinal anesthesia was found to be adequate. A time out was performed. The skin was injected with bupivocaine along the length of the planned incision. A skin incision was made with the scalpel and carried down to the underlying layer of fascia with blunt dissection. The fascia was incised on either side of the midline and the fascial incision extended laterally with a combination of sharp and blunt dissection. The inferior edge of the fascia was grasped with pipo clamps and tented up and dissected down with a combination of sharp and blunt dissection. Then the superior edge of the fascial incision was grasped with pipo clamps and tented up and dissected down with a combination of sharp and blunt dissection. The rectus muscles were in the midline and the peritoneum was entered bluntly. The peritoneal incision was extended laterally with blunt dissection. The bladder blade was inserted. A transverse incision was made in the lower uterine segment with the scalpel. The incision was extended superiorly and inferiorly with blunt pressure. The buttocks were delivered with fundal pressure followed by the legs and torso. The body was then rotated to deliver each arm followed by delivery of the head in a flexed position. The cord was milked toward the baby and after 1min it was clamped x2 and cut. The baby was handed to the beer maker. Cord blood was collected. The placenta delivered with fundal massage and gentle cord traction and appeared to be intact. The cord was doubly clamped for cord gasses. The uterus was exteriorized and cleared of clots and debris. It was noted to be bicornuate and there was a thick piece of ambiotic sac that had to be teased out of the left uterine horn. The uterine incision was closed with 0-vicryl in a running locked fashion with a second layer of suture imbricating the first. Good hemostasis was noted. The uterus was placed back into the abdominal cavity. Clots were cleared from the peritoneal cavity with lap sponges. The incision was inspected once again and good hemostasis was noted. There was good hemostasis of the rectus muscles. The fascia was closed with 0- vicryl in a running unlocked fashion. The subcuticular layer was irrigated and closed with interrupted sutures of 3-0 vicryl. The skin was closed with 4-0 vicryl in a running subcuticular fashion. The incision was cleaned. Mastisol and steristrips were placed. A Mepilex dressing was placed. The fundus was palpated to be firm. The patient was moved to the stretcher and taken to the recovery room in stable condition.
--- NOTE | 2023-12-28 09:36 | W.ANESPOSTOP ---
Postoperative Evaluation Date, Time and Location Date Performed: 12/28/23 Time Performed: 08:30 Patient Location: Obstetrics Vital Signs Most Recent Imported Vital Signs: Most Recent Vital Signs Temp Pulse Resp BP Pulse Ox 36.5 C 56 L 16 119/70 97 12/28/23 07:11 12/28/23 09:31 12/28/23 09:27 12/28/23 09:27 12/28/23 09:31 Pain Score Most Recent Pain Score: Most Recent Pain Score Pain Level 0 12/28/23 09:27 Assessment Mental Status: Awake (Alert & Oriented to Patient Baseline) Airway and Respiratory Function: Patent airway with normal (patient baseline) respiratory exam Cardiovascular Function: Hemodynamically Stable Hydration Status: Adequately Hydrated Nausea & Vomiting: No Nausea or Vomiting Pain: Pt. Denies Any Pain Peripheral Nerve Block: Patient did not receive a nerve block
[2023-12-28] MEDS: Acetaminophen 325 MG TAB 650 MG PO (10:28)
[2023-12-28] MEDS: oxyCODONE 5 MG TAB PO (10:28)
[2023-12-28] MEDS: Ketorolac 30 MG/ML VIAL IVP ×2 (14:45→21:00)
[2023-12-28] MEDS: Normal Saline Flush 10 ML SYR IVP ×2 (14:46→21:00)
--- NOTE | 2023-12-28 15:34 | W.PM.OBPNV1 ---
Date of service: 12/28/23 Time of Service: 15:34 Assessment and Plan Assessment and plan (1) Status post primary low transverse section: Status: Acute Assessment and plan: Postop day 0 status post primary section. Heavier than usual incisional bleeding. Mepilex removed. Pressure dressing placed. Will reevaluate tomorrow. If stable, replace Mepilex. CBC in the morning. Vital signs are stable. All questions answered. (2) Breech presentation: Status: Acute Exam Physical Exam Vital signs: Temp Pulse Resp BP Pulse Ox 97.6 F 60 16 117/66 97 12/28/23 13:07 12/28/23 15:32 12/28/23 14:30 12/28/23 15:21 12/28/23 15:32 Narrative: Patient was seen postoperative day #0. Vital signs reviewed and stable. Urine output is appropriate. Called to see patient regarding saturated Mepilex dressing. Dressing removed. Incision clean, dry, intact. No erythema or fluctuance. No ongoing bleeding. Pressure dressing placed.
[2023-12-29] VITALS (12 sets, daily range): BP systolic 105–124; BP diastolic 59–79; PULSE 54–68; RESP 16–18; TEMP 36.4–36.8; O2SAT 97–100
[2023-12-29] MEDS: Normal Saline Flush 10 ML SYR IVP ×3 (03:08→09:12)
[2023-12-29] MEDS: Ketorolac 30 MG/ML VIAL IVP ×2 (03:08→09:07)
[2023-12-29 06:41] LABS: Abs Immature Grans 0.14 10^3/uL (0.0-0.06); Absolute Basophil Count 0.04 10^3/uL (0.0-0.2); Absolute Eosinophil Count 0.07 10^3/uL (0.0-0.7); Absolute Neutrophil Count 13.55 10^3/uL (1.2-6.7); Basophils % 0.2; Eosinophils % 0.4; HCT 33.5 % (36.0-46.0); HGB 11.2 g/dL (11.2-15.7); Immature Grans % 0.8; MCH 27.4 pg (27.0-33.0); MCHC 33.4 % (32.0-36.0); MCV 82 fL (80-95); MPV 10.6 fL (8.0-11.0); Monocytes % 7.6; Platelet Count 196 10^3/uL (130-400); RBC 4.09 10^6/uL (3.93-5.22); RDW 14.2 % (11.7-14.6); RDW-SD 41.7 fL; WBC 17.83 10^3/uL (4.4-10.8)
[2023-12-29 06:46] LABS: Absolute Lymphocyte Count 2.67 10^3/uL (1.2-3.4); Absolute Monocyte Count 1.36 10^3/uL (0.1-0.8)
[2023-12-29] MEDS: Docusate Sodium 100 MG CAP PO ×2 (07:30→20:31)
--- NOTE | 2023-12-29 08:05 | W.PM.OBPNV1 ---
Date of service: 12/29/23 Time of Service: 08:05 Assessment and Plan Assessment and plan (1) Status post primary low transverse section: Status: Acute Assessment and plan: Postoperative day #1 status post primary low-transverse section for persistent breech presentation and bicornuate uterus. Overall doing well. Increase activity today. Oral pain medication. Anticipate discharge if stable 12/30/2023. Subjective Subjective Narrative: Patient seen this morning. Overall doing well. Mepilex dressing replaced yesterday. Vital signs are stable. Hemoglobin is stable at 11.2. Ambulating, tolerating regular diet. Appropriate urine output. Exam Physical Exam Vital signs: Temp Pulse Resp BP Pulse Ox 97.5 F L 66 16 119/74 98 12/29/23 07:00 12/29/23 07:00 12/29/23 07:00 12/29/23 07:00 12/29/23 07:00 Vital Signs Reviewed: Yes Constitutional Constitutional: no acute distress HEENT Exam HEENT Exam: Normal Respiratory Exam Respiratory Exam: Normal Cardiovascular Exam Cardiovascular Exam: Normal Abdominal Exam Abdomen: Tender Comments: Incision dressed Fundal Exam Fundus: Below Umbilicus and Firm Extremities Exam Extremity Exam: Normal; negative Calf Tenderness or Edema Neurological Exam Neurological Exam: Normal Psychiatric Exam Psychiatric Exam: Normal Results Hemoglobin/Hematocrit: Hgb 11.2 g/dL (11.2-15.7) 12/29/23 06:00 Hct 33.5 % (36.0-46.0) L 12/29/23 06:00 Abnormal Lab Findings: Abnormal Labs 12/29/23 06:00 WBC 17.83 H Hct 33.5 L Absolute Neutrophils 13.55 H Absolute Monocytes 1.36 H
[2023-12-29] MEDS: Acetaminophen 325 MG TAB 650 MG PO ×2 (12:57→18:50)
[2023-12-29] MEDS: oxyCODONE 5 MG TAB PO ×2 (14:35→20:30)
[2023-12-29] MEDS: Ibuprofen 600 MG TAB PO (18:50)
[2023-12-30] MEDS: Ibuprofen 600 MG TAB PO ×2 (00:49→07:41)
[2023-12-30] MEDS: Acetaminophen 325 MG TAB 650 MG PO ×2 (00:49→07:41)
[2023-12-30 00:52] VITALS: BP 113/78; PULSE 70; RESP 17; TEMP 36.8; O2SAT 99
[2023-12-30] MEDS: oxyCODONE 5 MG TAB PO ×2 (04:21→11:49)
[2023-12-30 07:35] VITALS: BP 123/80; PULSE 69; RESP 16; TEMP 36.5; O2SAT 99
[2023-12-30] MEDS: Docusate Sodium 100 MG CAP PO (07:41)
--- NOTE | 2023-12-30 10:06 | W.PM.OBPNV1 ---
Date of service: 12/30/23 Time of Service: 10:06 Assessment and Plan Assessment and plan (1) Status post primary low transverse section: Status: Acute Assessment and plan: Postoperative day #2 status post primary low-transverse section for breech presentation and bicornuate uterus. Doing well. She is to home today with follow-up in the office in 1, 2, and 6 weeks. All questions answered. Prescriptions will go to the pharmacy. Subjective Subjective Interval history: Patient seen and examined post operative and day #2 status post primary low-transverse section for breech presentation and bicornuate uterus. Overall doing well. Ambulating, tolerating regular diet and oral pain medication with stable vital signs. [place] circumcision performed today at parents request. Anticipate discharge today. Follow-up with women's wellness in 1, 2, and 6 weeks. [place] baby status: Doing well, Nursing well and Strong Bonding Observed [place] feeding status: Exclusively breast feeding Exam Physical Exam Vital signs: Temp Pulse Resp BP Pulse Ox 97.7 F 69 16 123/80 99 12/30/23 07:35 12/30/23 07:35 12/30/23 07:35 12/30/23 07:35 12/30/23 07:35 Vital Signs Reviewed: Yes Constitutional Constitutional: no acute distress HEENT Exam HEENT Exam: Normal Respiratory Exam Respiratory Exam: Normal Cardiovascular Exam Cardiovascular Exam: Normal Abdominal Exam Abdomen: Tender Comments: Mepilex dressing in place. 2 cm area of shadowing with no expansion. No surrounding erythema, induration, or ecchymosis noted. Fundal Exam Fundus: Below Umbilicus and Firm Extremities Exam Extremity Exam: Normal; negative Calf Tenderness, Edema or Redness Skin Exam Skin Exam: Normal Neurological Exam Neurological Exam: Normal Psychiatric Exam Psychiatric Exam: Normal Results Hemoglobin/Hematocrit: Hgb 11.2 g/dL (11.2-15.7) 12/29/23 06:00 Hct 33.5 % (36.0-46.0) L 12/29/23 06:00 Abnormal Lab Findings: Abnormal Labs 12/29/23 06:00 WBC 17.83 H Hct 33.5 L Absolute Neutrophils 13.55 H Absolute Monocytes 1.36 H
--- NOTE | 2023-12-30 10:13 | W.PM.OBDISCH ---
Date of service: 12/30/23 Time of Service: 10:13 DS: Diagnosis Discharge Diagnosis (1) Status post primary low transverse section: Status: Acute Asessment and Plan: Postop day 2 status post primary low-transverse section for breech presentation and bicornuate uterus. Delivery of a viable male infant who underwent circumcision 12/30/2023. Discharge home today. Prescriptions to the pharmacy. Discharge Plan Disposition Patient Disposition: Home Condition: Improving Discharge Details Reason For Visit: Delivery Admit Date/Time: 12/28/23 05:38 Admit Provider: Denia Tatum Attending Provider: Denia Ttaum Primary Care Provider: Unknown,Unknown Hospital Course Hospital Course: Patient was admitted on 12/28/2023 for primary section. She was underwent a primary low-transverse section for breech presentation, and bicornuate uterus, declines external cephalic version. She had uncomplicated postoperative course and was discharged home postoperative day #2 ambulating, tolerating oral pain medication with stable vital signs. She was breast-feeding her male infant who had circumcision performed today. She will be seen by in the office for care it 1, 2, and 6 weeks. All questions answered. Home Meds and New Rx's Prescriptions: New ibuprofen 800 mg tablet 800 mg PO Q8H Qty: 60 1RF oxycodone-acetaminophen [Percocet] 5-325 mg tablet 1 tab PO Q8H PRNQty: 7 0RF docusate sodium [Colace] 100 mg capsule 100 mg PO BID Qty: 30 0RF Continued Complete 14 mg iron- 400 mcg tablet 1 tab PO DAILY Discontinued aspirin 81 mg tablet,chewable 81 mg PO DAILY Discharge Instructions Additional Instructions: Follow-up with Dr. Tatum in 1, 2, and 6 weeks. Stand Alone Forms: BC Instructions, BC Discharge Instruc Activity:: Pelvic rest, no heavy lif Equipment/Supplies:: No Equipment Needed Diet:: As Tolerated Discharge Orders Discharge Orders: Discharge Order (Routine); Ordered 12/30/23 Ordered By: Grecia Grace OB:DS Summary Contraception Discussed Contraception Discussed: Yes Contraceptive Plan: Undecided, Infant Gender-Baby A: Male weight: 6 lb 13.878 oz Status at Discharge Functional status at discharge: independent ambulation Overall status at discharge: patient is progressing back to baseline Mental Status: mental status grossly normal Speech and Movement: speech and movement normal Mood: congruent mood Affect: normal affect Quality:SDOH Health Related Social Needs: Health related social needs risk of homeless Exam Physical Exam Vital signs: Temp Pulse Resp BP Pulse Ox 97.7 F 69 16 123/80 99 12/30/23 07:35 12/30/23 07:35 12/30/23 07:35 12/30/23 07:35 12/30/23 07:35 Narrative: See physical exam from progress note dated 12/30/2023 [facility] All Active Problems Status post primary low transverse section (Acute) Breech presentation (Acute) Maternal varicella, non-immune (Acute) Vanishing twin syndrome (Acute) BMI 30.0-30.9,adult (Acute) Bicornuate uterus (Acute) Family history of congenital heart defect (Acute) (Acute) Medical History Smoker Vape, trying to quit. First trimester bleeding Miscarriage Threatened Lateral meniscus tear No pertinent past medical history Surgical History (Updated 12/28/23 @ 15:34 by Grecia Grace DO) History of D&C 03/22/2023. Embryonic demise at 6 weeks EGA No pertinent past surgical history Family History Maternal Grandfather Retinitis pigmentosa Father Alcohol use disorder Social History Smoking/Tobacco Use Status: Former Tobacco Use Quit Date: 07/05/23 Counseling given: provider counseling Smoking risk assessment performed?: Yes Alcohol Intake: former Drug use: Never Substance use type: does not use Household members: significant other Housing: apartment Sexually active: Yes Do you think of yourself as: straight/heterosexual Current gender identity: female Additional Social history: Unable to assess privatley Female Reproductive History Menstrual control method: none History History 2 Para 0 Hx # Term Pregnancies 0 Multiple births 0 Hx # Pregnancies 0 Ectopic pregnancies 0 AB induced 0 Hx Number of Living Children 0 AB spontaneous 1 Past Pregnancies Del. Date GA/Weeks # Preg Succ Route Wgt Sex Labor Lgth Anesthesia Location Prov Complic 03/20/23 No No Nubia OWilner [place] Delivery Date: 03/20/23 Last Updated by: Katerine Lara&Rhonda DS: Data Vitals/I&O Vitals and I&O: Vital Signs Temperature 97.7 F 12/30/23 07:35 Temperature Source Oral 12/30/23 07:35 Pulse 69 12/30/23 07:35 Pulse Rhythm Regular 12/30/23 07:35 Respiratory Rate 16 12/30/23 07:35 Respiratory Depth Normal 12/29/23 20:30 Blood Pressure 123/80 12/30/23 07:35 Blood Pressure Mean 94 12/30/23 07:35 Pulse Oximetry 99 12/30/23 07:35 Oxygen Delivery Method Room Air 12/28/23 09:24 Oxygen Flow Rate 0 12/28/23 07:11 Pain Level 5 12/30/23 07:41 Intake & Output 12/29/23 12/29/23 12/30/23 11:59 23:59 11:59 Intake Total 550 / 550 Output Total 1100 / 1700 600 / 1700 Balance -1100 / -1150 -50 / -1150 Intake: Oral 550 / 550 Output: Urine 1100 / 1700 600 / 1700 Other: Urine Color Yellow Yellow Urine Appearance Clear
== END 2023-12-30 12:25 | disposition home or self-care (01) | DRG 788 ==
PROVIDERS: Admitting Provider Obstetrics & Gynecology; Visit Provider Obstetrics & Gynecology
PROC: 10D00Z1 Extraction of Products of Conception, Low, Open Approach (ICD-10-PCS; CPT 59514; principal; 2023-12-28 07:30)
DX: O32.1XX0 Maternal care for breech presentation, not applicable or unspecified (principal); Z37.0 Single live birth; Z3A.38 38 weeks gestation of pregnancy; O34.03 Maternal care for unspecified congenital malformation of uterus, third trimester; Q51.3 Bicornate uterus; O99.344 Other mental disorders complicating childbirth; F41.8 Other specified anxiety disorders; O99.334 Smoking (tobacco) complicating childbirth; F17.290 Nicotine dependence, other tobacco product, uncomplicated
CPT/HCPCS: 59514; 36415; 82803; 85025; 88307; J0456; J0665; J0690; J1100; J1885; J2274; J2371; J2405; J3010

== ENCOUNTER 2024-02-08 14:56 | Outpatient (CLI) | payer OTHER, SELFPAY ==
[2024-02-09 10:40] LABS: Factor 5 Assay 75 % (62-139)
[2024-02-09 22:03] LABS: Phospholipid Ab, IgG <9.4 GPL; Phospholipid Ab, IgM <9.4 MPL
[2024-02-12 21:44] LABS: Beta 2 Glycoprotein 1 Ab IgA <9.4 SAU
[2024-02-13 11:13] LABS: Prothrombin G20210A Mutation Negative (Negative)
[2024-02-14 10:08] LABS: Protein C, Functional 134 % (71-199); Protein S, Functional 89 % (64-147)
[2024-02-15 20:12] LABS: Thrombin-Antithrombin Complex 2.6 ng/mL
== END 2024-02-08 14:57 | disposition home or self-care (01) ==
PROVIDERS: Visit Provider Obstetrics & Gynecology
DX: O43.193 Other malformation of placenta, third trimester (principal); Z39.2 Encounter for routine postpartum follow-up
CPT/HCPCS: 36415; 81240; 83520; 85306; 86146; 86147; 85303